=== PATIENT | male | born 2000 | race Hispanic/Latino ===

== ENCOUNTER 2024-05-16 14:49 | Emergency (ER) | payer OTHER ==
[2024-05-16] MEDS ORDERED: Dexamethasone 10 MG/ML VIAL ONE (16:15)
[2024-05-16] MEDS ORDERED: Ibuprofen 800 MG TAB ONE (16:16)
== END 2024-05-16 16:27 | disposition home or self-care (01) ==
LOC: ERS 14:49
DX: J02.9 Acute pharyngitis, unspecified (principal)
CPT/HCPCS: 87081; 87430; 99284; J1100